=== PATIENT | female | born 1990 | race Caucasian/White ===

== ENCOUNTER 2017-03-08 11:32 | Emergency (ER) | payer OTHER ==
--- NOTE | 2017-03-08 13:30 | UC ---
Back Pain HPI - HPI Summary HPI Summary: Pt presents with right sided lower back pain with numbness into her right leg. She tells me that her pain began about a year ago and she has been managing it with physical therapy and personal care aid. 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 In addition to this right sided lower back pain, she is have numbness and decreased sensations in her right thigh, calf, down to her foot that began 3 days ago. Not getting worse, but not improving. No dysuria, hematuria, saddle anesthesia, pelvic pain, loss of bowel/bladder control. She also mentions that she used to be an avid runner, but hasn't been over the last year due to her back pain. This is very distressing for her as she loves to be an active person. She tells me that one time, years ago, she was running and had a spontaneous fracture of a bone in her right lower leg. She also mentions that she was on minocycline when she was younger for acne - this treatment lasted a few months. As a result, she developed low platelets and was told that her bone marrow had been "compromised". She bruises easily because of this. She also complains of right knee pain, but denies injury. - History of Current Complaint Chief Complaint: UCBackPain Stated Complaint: LOSING FEELING IN LEG Time Seen by Provider: 03/08/17 13:30 Hx Obtained From: Patient Hx Last Menstrual Period: IUD Onset/Duration: Gradual Onset Timing: Intermittent Severity Initially: Moderate Severity Currently: Moderate Pain Intensity: 7 Pain Scale Used: 0-10 Numeric Character: Aching, Throbbing, Spasmodic Aggravating Factor(s): Lifting, Bending, Walking Alleviating Factor(s): Rest Associated Signs And Symptoms: Positive: Numbness - Allergies/Home Medications Allergies/Adverse Reactions: Allergies Allergy/AdvReac Type Severity Reaction Status Date / Time Minocycline Allergy Unknown Verified 03/08/17 11:53 Reaction Details Home Medications: Home Medications Bupropion XL* [Wellbutrin XL *] 300 mg PO DAILY 03/08/17 [History Confirmed ] Cephalexin CAP* [Keflex 500 CAP*] 03/08/17 [History] Hydrocodone-Acetaminophen [Vicodin 5-300 mg] 03/08/17 [History] Lurasidone(*) [Latuda] 03/08/17 [History] Multiple Vitamins W/ Minerals [Multivitamin Women] 03/08/17 [History] Naproxen Sodium-Diphenhydramin [Aleve PM 220-25 mg] 03/08/17 [History] Sertraline HCl [Zoloft] 150 mg PO DAILY 03/08/17 [History Confirmed 03/08/17] PMH/Surg Hx/FS Hx/Imm Hx Psychological History: Anxiety Other History Of: Negative For: Anticoagulant Therapy - Surgical History Surgical History: None - Family History Known Family History: Positive: None - Social History Occupation: Student Lives: Alone Alcohol Use: Rare Substance Use Type: None Smoking Status (MU): Never Smoked Tobacco Review of Systems Constitutional: Negative Skin: Negative Eyes: Negative Respiratory: Negative Cardiovascular: Negative Gastrointestinal: Negative Genitourinary: Negative Musculoskeletal: Other: - Low back pain. Right knee pain Neurological: Numbness - Right leg All Other Systems Reviewed And Are Negative: Yes Physical Exam Triage Information Reviewed: Yes Appearance: Well-Nourished, Pain Distress Vital Signs: Initial Vital Signs Temp 99.0 F 03/08/17 11:47 Pulse 64 03/08/17 11:47 Resp 14 03/08/17 11:47 BP 154/82 03/08/17 11:47 Pulse Ox 100 03/08/17 11:47 Vital Signs Reviewed: Yes Neck: Positive: Supple, Nontender, No Lymphadenopathy, Other: - FROM Respiratory: Positive: Lungs clear, Normal breath sounds, No respiratory distress, No accessory muscle use Cardiovascular: Positive: RRR, No Murmur, Pulses Normal Abdomen Description: Positive: Nontender, No Organomegaly, Soft. Negative: CVA Tenderness (R), CVA Tenderness (L), Distended, Guarding Bowel Sounds: Positive: Present Musculoskeletal: Positive: Strength Intact - B/L LEs including dorsioflexion and plantar flexion, ROM Intact - B/L LEs, No Edema, Other: - Could not reproduce pain in right lower back with palpation. Pain with extension of spine. +SLR on right. Negative EDILMA. Right knee: TTP over patella. FROM. 5/5 strength. Gait with normal base. Neurological: Positive: Alert, Other: - L2-S1 sensations present B/L, but feel decreased along dermatome L4 on right. Psychological: Positive: Age Appropriate Behavior Skin: Negative: rashes, significant lesion(s) Back Pain Course/Dx - Course Course Of Treatment: Right knee: IMPRESSION: NO ACUTE BONY FINDINGS. PRESUMED OLD AVULSION INJURY/FRACTURE SUPERIOR PATELLA. She does not recall any impact or other injury to this knee recently or in the past. Lumbar: IMPRESSION: MILD DEGENERATIVE DISC DISEASE AND OSTEOARTHRITIS. Given her history, current clinical picture, and osteoarthritis at a young age - I am concerned that she may have a herniated disc or underlying autoimmune disease. We had a lengthy discussion about follow up care. She has an appointment with her PCP on 03/15 and will discuss this in more detail at that visit. For her PCP to review at that visit, I have ordered a CBC, CMP, and TSH today. Experienced great relief with Toradol IM today. She will continue to take ibuprofen and narcotic pain medication prn that she has at home for flare ups. - Differential Dx/Diagnosis Provider Diagnoses: Low back pain. Right patella avulsion fracture Discharge - Discharge Plan Condition: Stable Disposition: HOME Patient Education Materials: Lower Back Exercises (ED) Referrals: No Primary Care Phys,NOPCP [Primary Care Provider] - Pako Tracy DO [Medical Doctor] - As Soon As Possible Additional Instructions: If you develop a fever, shortness of breath, chest pain, new or worsening symptoms - please call your PCP or go to the ED. Your blood pressure was high at todays visit. Please see your primary provider within 4 weeks for recheck and re-evaluation. 1) Please keep your follow up appointment with Dr. Saul for 03/15/17. Please discuss with her your chronic back pain and XR findings at today's visit. Based on her recommendations, it is possible you may require an MRI or further blood work. 2) Continue to take ibuprofen as needed for your pain.
[2017-03-08] MEDS ORDERED: Ketorolac INJ* 30 MG/ML 1 ML VIAL IM ONE (13:37)
--- NOTE | 2017-03-08 14:14 | RAD ---
HISTORY: Acute low back pain COMPARISONS: None VIEWS: 5 , Frontal, lateral, coned-down lateral sacral, and bilateral oblique views of the lumbar spine. FINDINGS: ALIGNMENT: The alignment is normal. VERTEBRAL BODIES: The vertebral body heights are normal. The interpedicular distances are normal. JOINTS: There is mild facet hypertrophic change along the lower lumbar spine INTERVERTEBRAL DISCS: There is mild diffuse loss of intervertebral disc height. SOFT TISSUE: Unremarkable. OTHER: The pelvis is unremarkable. The lung bases are clear. An IUD is noted. IMPRESSION: MILD DEGENERATIVE DISC DISEASE AND OSTEOARTHRITIS.
--- NOTE | 2017-03-08 14:16 | RAD ---
INDICATION: Right knee pain COMPARISON: None TECHNIQUE: AP, lateral, tunnel, and sunrise views were obtained. FINDINGS: There is no acute bony change. There are irregularities of the superior patella which may be related to a remote injury. The knee articulates normally. The soft tissues are normal. IMPRESSION: NO ACUTE BONY FINDINGS. PRESUMED OLD AVULSION INJURY/FRACTURE SUPERIOR PATELLA
[2017-03-08 14:30] VITALS: BP 117/73
[2017-03-08 18:31] LABS: ABS Basophils 0.1 10^3/ul (0-0.2); ABS Eosinophils 0.5 10^3/ul (0-0.6); ABS Lymphocytes 2.4 10^3/ul (1.0-4.8); ABS Monocytes 0.8 10^3/ul (0-0.8); ABS Neutrophils 4.9 10^3/ul (1.5-7.7); ABS Nucleated RBC 0 10^3/ul; Hematocrit 40 % (35-47); Hemoglobin 13.9 g/dl (12.0-16.0); Lymphocyte % 27.3 % (25-47); Mean Corpuscular HGB Conc 35 g/dl (31-36); Mean Corpuscular Hemoglobin 32 pg (27-31); Mean Corpuscular Volume 93 fL (80-97); Mean Platelet Volume 9 um3 (7.4-10.4); Nucleated Red Blood Cells % 0; Platelet Count 223 10^3/ul (150-450); Red Blood Count 4.33 10^6/ul (4.0-5.4); Red Cell Distribution Width 13 % (10.5-15); White Blood Count 8.7 10^3/ul (3.5-10.8)
[2017-03-08 18:46] LABS: EGFR Non-African American 94.9 (>60)
== END 2017-03-08 15:35 | disposition home or self-care (01) ==
LOC: UCEAST 11:32
DX: S82.091A Other fracture of right patella, initial encounter for closed fracture (principal); X58.XXXA Exposure to other specified factors, initial encounter; Y92.9 Unspecified place or not applicable; F41.9 Anxiety disorder, unspecified; M54.5 Low back pain
CPT/HCPCS: 36415; 72110; 80053; 81003; 84443; 85025; 87086; 96372; 99211; G0463; J1885

== ENCOUNTER 2017-04-15 16:44 | Emergency (ER) | payer OTHER ==
[2017-04-15 20:10] LABS: Urine Appearance Clear; Urine Blood Negative (Negative); Urine Color Yellow; Urine Ketones Negative (Negative); Urine Protein Negative (Negative); Urine Specific Gravity 1.008 (1.010-1.030); Urine Urobilinogen Negative (Negative)
[2017-04-15 20:44] VITALS: BP 113/68
--- NOTE | 2017-04-15 21:31 | ED ---
Back Pain - HPI Summary HPI Summary: Patient is a 26-year-old female presenting to the ED with a chief complaint of bilateral lower back pain radiating into the legs. She has been dealing with this for several years, with symptoms being intermittent. She endorses intermittent urinary incontinence as well as what she is stating as a "foot drop " with a intermittent drag of the right foot. She denies this currently and denies any back pain currently. She states when she arrived to the ED the pain was severe. She appears very upset, stating she has been dealing with this for a long time and no one is able to figure out the cause. MRI 1 month ago negative. She has been to PT 3 months with no improvement. She states she improved while she was doing tractioned therapy, but current PT will not provide traction therapy. She has tried Flexeril with some relief of associated muscle spasms, but denies any relief of pain. She has tried pain medicine with improvement, but has not been on this recently. She has not tried steroids. While the pain is discretely located over the bilateral sacroiliac joints, the numbness and tingling radiates into the inner and lateral thigh into the right lateral calf, sparing the foot. She is currently on Wellbutrin and Zoloft, both of which are not known to cause symptoms such as these. The urinary incontinence is very infrequent and is often isolated, not associated with back pain. Denies any weight loss or bowel incontinence. Denies any saddle anesthesia. - History of Current Complaint Chief Complaint: EDBackInjuryPain Stated Complaint: BACK PAIN Time Seen by Provider: 04/15/17 18:18 Hx Obtained From: Patient Hx Last Menstrual Period: IUD Onset/Duration: Sudden Onset Onset/Duration: Started Hours Ago Timing: Constant Back Pain Location: Is Discrete @ - Bilateral low back pain bilateral low back pain, Radiates To - Lateral thigh, inner thigh, lateral calf Pain Intensity: 5 Pain Scale Used: 0-10 Numeric Character: Aching Aggravating Symptom(s): Movement, Lifting, Bending, Walking Alleviating Symptom(s): Other - Pain medicine, muscle relaxers Associated Signs And Symptoms: Positive: Bladder Incontinence. Negative: Bowel Incontinence, Weight Loss, Pain with Weight Bearing - Risk Factors AAA Risk Factors: Negative TAD Risk Factors: Negative - Allergies/Home Medications Allergies/Adverse Reactions: Allergies Allergy/AdvReac Type Severity Reaction Status Date / Time MS Minocycline [Minocycline] Allergy Unknown Verified 03/08/17 11:53 Reaction Details PMH/Surg Hx/FS Hx/Imm Hx Previously Healthy: Yes Endocrine/Hematology History: Denies: Hx Anticoagulant Therapy, Hx Blood Disorders, Hx Diabetes, Hx Anemia Cardiovascular History: Denies: Hx Hypertension, Hx Pacemaker/ICD GI History: Denies: Hx Crohn's Disease, Hx Diverticulosis, Hx Gall Bladder Disease, Hx Gastroesophageal Reflux Disease, Hx Gastrointestinal Bleed, Hx Irritable Bowel, Hx Obstructive Bowel, Hx Ulcer History: Denies: Hx Renal Disease Sensory History: Denies: Hx Hearing Aid Psychiatric History: Denies: Hx Panic Disorder - Immunization History Hx Pertussis Vaccination: No Immunizations Up to Date: Unable to Obtain/Confirm Infectious Disease History: No Infectious Disease History: Denies: Traveled Outside the [place] in Last 30 Days - Family History Known Family History: Positive: None - Social History Occupation: Employed Full-time Lives: With Family Alcohol Use: Rare Hx Substance Use: No Substance Use Type: Reports: None Hx Tobacco Use: No Smoking Status (MU): Never Smoked Tobacco Review of Systems Constitutional: Negative Negative: Fever, Chills, Fatigue, Skin Diaphoresis Eyes: Negative Cardiovascular: Negative Genitourinary: Negative Positive: no symptoms reported, see HPI Positive: Arthralgia, Myalgia Skin: Negative Positive: Weakness, Paresthesia, Numbness Psychological: Normal All Other Systems Reviewed And Are Negative: Yes Physical Exam Triage Information Reviewed: Yes Vital Signs On Initial Exam: Initial Vitals Temp Pulse Resp BP Pulse Ox 98.1 F 85 18 121/81 100 04/15/17 16:46 04/15/17 16:46 04/15/17 16:46 04/15/17 16:46 04/15/17 16:46 Vital Signs Reviewed: Yes Appearance: Positive: Well-Appearing, Well-Nourished Skin: Positive: Warm, Skin Color Reflects Adequate Perfusion Head/Face: Positive: Normal Head/Face Inspection Eyes: Positive: EOMI, NHI, Conjunctiva Clear Neck: Positive: Supple, No Lymphadenopathy Respiratory/Lung Sounds: Positive: Clear to Auscultation, Breath Sounds Present Cardiovascular: Positive: RRR, Pulses are Symmetrical in both Upper and Lower Extremities Musculoskeletal: Positive: Strength/ROM Intact Neurological: Positive: Speech Normal Psychiatric: Positive: Normal Diagnostics - Vital Signs Vital Signs Temp Pulse Resp BP Pulse Ox 03/08/18 20:42 97.8 F 75 17 113/68 100 04/15/17 16:46 98.1 F 85 18 121/81 100 - Laboratory Lab Results: Lab Results 04/15/17 Range/Units 20:00 Urine Color Yellow Urine Appearance Clear Urine pH 7.0 (5-9) Ur Specific [place] 1.008 L (1.010-1.030) Urine Protein Negative (Negative) Urine Ketones Negative (Negative) Urine Blood Negative (Negative) Urine Nitrate Negative (Negative) Urine Bilirubin Negative (Negative) Urine Urobilinogen Negative (Negative) Ur Leukocyte Esterase Negative (Negative) Urine Glucose Negative (Negative) Lab Statement: Any lab studies that have been ordered have been reviewed, and results considered in the medical decision making process. Back Pain Course/Dx - Course Course Of Treatment: During the course of treatment, I have discussed at length with patient the probable causes of her back pain and urinary incontinence. Lumbar MRI obtained 1 month ago and negative for any findings. She has not seen a neurosurgeon, a urologist, or an [facility]. Likely urinary incontinence due to other pathology which could include UTI, loss of pelvic floor muscle, or generalized bladder spasms. This does not appear to be an overflow incontinence , as she states she never has any abdominal pain or distention and she will often have a small bout of incontinence shortly following urinating. I have discussed with her the need to follow up with [facility] to assess for any other structural or physiologic pathology which could be contributing to her new incontinence symptoms. I do not believe at this time it is a urology consult which is necessary. She is given a tapered dose of steroids as she has not tried this for relief. She is also given pain medicine and muscle relaxers. She is encouraged to follow up with massage therapy, PT, rn intensive care unit as well as a referral to Dr. Salcedo, neurosurgery, is given. Patient is okay with this plan and discharged. At this time she is ambulating well, has full strength in the bilateral legs, and I observed no neurologic deficits on physical exam. She is okay at this time for discharge. - Diagnoses Differential Diagnosis/HQI/PQRI: Positive: Cauda Equina Syndrome, Compressive Cord Syndrome, Herniated Disc, Strain, Sprain. Negative: Epidural Abscess, Neoplasm, Osteomyelitis, Osteoporosis Provider Diagnoses: Chronic low back pain Discharge - Discharge Plan Condition: Stable Disposition: HOME Prescriptions: Cyclobenzaprine TAB* [Flexeril TAB*] 10 mg PO BID PRN #15 tab MDD 2 PRN Reason: Spasms - Muscle oxyCODONE/Acetamin 10/325(NF) [Percocet 10/325 (NF)] 1 tab PO QID #20 tab MDD 4 predniSONE TAB* [Deltasone TAB*] 10 mg PO DAILY #30 tab Patient Education Materials: Sciatica (ED), Lumbar Radiculopathy (ED), Lower Back Exercises (ED) [place] [facility] [facility] [place],PT [Medical Doctor] - [facility] [Primary Care Provider] - Alejandrina Burk MD [Medical Doctor] - Matt Salcedo MD [Medical Doctor] - Additional Instructions: Prednisone: Take 5 tabs on day 1, 2; Take 4 tabs on day 3, 4; Take 3 tabs on day 5, 6; Take 2 tabs on day 7, 8; Take 1 tab daily until gone Oxycodone/acetaminophen: Up to four times daily for pain Flexeril: Up to twice daily for muscle spasms Ibuprofen 600mg three times daily for inflammation. You may use this medication with all the other medications you are taking. The urine showed NO UTI. Please follow up with Dr. Burk in OBGYN Please follow up with Dr. Briggs in Neurosurgery to go over MRI and discuss treatment options Call PT for a new appt. Make an appt in [place] for a follow up for when school is out. You will want several people involved in your care!! It will help to get an appt for massage therapy and rn intensive care unit as well You never know what will help you.
== END 2017-04-15 20:42 | disposition home or self-care (01) ==
LOC: ED 16:44
DX: M54.5 Low back pain (principal); G89.29 Other chronic pain; Z88.3 Allergy status to other anti-infective agents
CPT/HCPCS: 81003; 99282

== ENCOUNTER 2018-03-01 20:57 | Emergency (ER) | payer OTHER ==
[2018-03-01 21:08] VITALS: BP 117/81
--- NOTE | 2018-03-01 21:10 | UC ---
Abdominal Pain Female HPI - HPI Summary HPI Summary: 27 yo female presents with diarrhea. She tells me that this morning she woke with loose stools, which turned to watery stools by midday. Has had 10+ stools today. 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 Admits that she may have been splashed in the face with cow feces at times. A lot of her classmates have had cryptosporidium and she thinks she may have it. This afternoon began with some nausea and two episodes of vomiting. She is able tolerate fluids po. Generalized abdominal cramping. Denies fever, chills, SOB, chest pain, dysuria. - History of Current Complaint Chief Complaint: UCGI Stated Complaint: DIARRHEA Hx Obtained From: Patient Hx Last Menstrual Period: none Onset/Duration: Gradual Onset Severity Initially: Mild Severity Currently: Mild Pain Intensity: 4 Pain Scale Used: 0-10 Numeric Allergies/Adverse Reactions: Allergies Allergy/AdvReac Type Severity Reaction Status Date / Time minocycline Allergy Severe bone marrow Verified 03/01/18 21:09 Home Medications: Home Medications Fluoxetine HCl [Prozac] 30 mg PO DAILY WITH MEAL 03/01/18 [History Confirmed ] PMH/Surg Hx/FS Hx/Imm Hx Psychological History: Anxiety, Depression Other History Of: Negative For: Anticoagulant Therapy - Surgical History Surgical History: None - Family History Known Family History: Positive: None - Social History Occupation: Student Lives: With Family Alcohol Use: Rare Substance Use Type: None Smoking Status (MU): Never Smoked Tobacco Review of Systems All Other Systems Reviewed And Are Negative: Yes Constitutional: Positive: Negative Skin: Positive: Negative Respiratory: Positive: Negative Cardiovascular: Positive: Negative Gastrointestinal: Positive: Abdominal Pain, Diarrhea, Nausea Neurological: Positive: Negative Psychological: Positive: Negative Physical Exam - Summary Physical Exam Summary: GENERAL: NAD. WDWN. No pain distress. SKIN: No rashes, sores, lesions, or open wounds. NECK: Supple. Nontender. No lymphadenopathy. CHEST: CTAB. No r/r/w. No accessory muscle use. Breathing comfortably and in no distress. CV: RRR. Without m/r/g. Pulses intact. Cap refill <2seconds ABDOMEN: Generalized mild abdominal tenderness. Soft. No distention or guarding. Bowel sounds hyperactive NEURO: Alert. PSYCH: Age appropriate behavior. Triage Information Reviewed: Yes Vital Signs: Initial Vital Signs Temp 99.5 F 03/01/18 21:03 Pulse 103 03/01/18 21:03 Resp 18 03/01/18 21:03 BP 117/81 03/01/18 21:03 Pulse Ox 100 03/01/18 21:03 Vital Signs Reviewed: Yes Abd Pain Female Course/Dx - Course Course Of Treatment: Pt was unable to produce a stool sample in the clinic, therefore will send her home with a stool kit in order to obtain cultures. Advised to avoid immodium and continue drinking fluids and advance diet as tolerated. Advised to go to ED if symptoms worsen or if she is unable to tolerate po. - Differential Dx/Diagnosis Provider Diagnosis: Diarrhea Discharge - Sign-Out/Discharge Documenting (check all that apply): Patient Departure All imaging exams completed and their final reports reviewed: No Studies - Discharge Plan Condition: Stable Disposition: HOME Patient Education Materials: Acute Diarrhea (ED) Referrals: No Primary Care Phys,NOPCP [Primary Care Provider] - Additional Instructions: If you develop a fever, shortness of breath, chest pain, new or worsening symptoms - please call your PCP or go to the ED. May continue taking your zofran every 6 hours as needed for nausea/vomiting. Do not take the immodium as this could worsen your condition. If your symptoms worsen or if you develop a fever - please go to the ER. - Billing Disposition and Condition Condition: STABLE Disposition: Home
== END 2018-03-01 21:55 | disposition home or self-care (01) ==
LOC: UCEAST 20:57
DX: R19.7 Diarrhea, unspecified (principal); F32.9 Major depressive disorder, single episode, unspecified; Z88.1 Allergy status to other antibiotic agents
CPT/HCPCS: 99211; G0463

== ENCOUNTER 2018-03-04 10:43 | Emergency (ER) | payer OTHER ==
[2018-03-04] MEDS ORDERED: NS 0.9% 1000 ML* 1,000 ML IV ONE ×2 (11:17→12:22)
--- NOTE | 2018-03-04 12:38 | UC ---
Nausea/Vomiting/Diarrhea HPI - HPI Summary HPI Summary: 27-year-old female presents with persistent nausea, vomiting, and diarrhea. She was seen at this facility on 03/01/2018 for same symptoms and was recommended supportive care. Stool culture came back on 03/02/2018 positive for cryptosporidium. She was called in a prescription for loperamide and nitazoxanide. States she has used the loperamide twice but has not yet filled the prescription for the nitazoxanide. She has been using ondansetron to manage the nausea and vomiting. States she had one small episode of vomiting 2 days ago but nothing since. On her initial evaluation she was reporting more than 10 episodes of watery diarrhea per day however since using the loperamide she is only had 3-5 episodes per day. Patient states she has been trying to push fluids but feels like she is not able to maintain adequate hydration and therefore presents today for IV fluids. Denies fever, chills, chest pain, palpitations, abdominal pain, or any urinary symptoms. - History of Current Complaint Chief Complaint: UCGU Stated Complaint: DIARRHEA/VOMITING Time Seen by Provider: 03/04/18 11:19 Hx Obtained From: Patient Hx Last Menstrual Period: iud Pain Intensity: 5 - Allergies/Home Medications Allergies/Adverse Reactions: Allergies Allergy/AdvReac Type Severity Reaction Status Date / Time minocycline Allergy Severe bone marrow Verified 03/04/18 10:56 PMH/Surg Hx/FS Hx/Imm Hx Previously Healthy: Yes Psychological History: Depression Other History Of: Negative For: Anticoagulant Therapy - Surgical History Surgical History: Yes Surgery Procedure, Year, and Place: wisdom teeth - Family History Known Family History: Positive: Non-Contributory - Social History Occupation: Student Lives: Dormitory/Roommates Alcohol Use: Rare Substance Use Type: None Smoking Status (MU): Never Smoked Tobacco Review of Systems All Other Systems Reviewed And Are Negative: Yes Constitutional: Negative: Fever, Chills Skin: Negative: Rash ENT: Positive: Negative Respiratory: Negative: Shortness Of Breath, Cough Cardiovascular: Negative: Palpitations, Chest Pain Gastrointestinal: Positive: Vomiting, Diarrhea, Nausea. Negative: Abdominal Pain Genitourinary: Negative: Dysuria, Hematuria, Frequency, Urgency Musculoskeletal: Positive: Negative Neurological: Positive: Negative Is Patient Immunocompromised?: No Physical Exam - Summary Physical Exam Summary: GENERAL APPEARANCE: Well developed, thin, alert and cooperative young adult female who appears non-toxic and to be in no acute distress. CARDIAC: Normal S1 and S2. No S3, S4 or murmurs. Rhythm is regular. There is no peripheral edema, cyanosis or pallor. Extremities are warm and well perfused. Capillary refill is less than 2 seconds. LUNGS: Clear to auscultation without rales, rhonchi, wheezing or diminished breath sounds. ABDOMEN: Positive bowel sounds. Abdomen soft and nondistended. Mild LLQ tenderness without guarding or rebound. No masses or hepatosplenomegally. No CVA tenderness. MUSKULOSKELETAL: ROM intact to all extremities. No joint erythema or tenderness. Normal muscular development. Normal gait. SKIN: Skin normal color, texture and turgor with no lesions or eruptions. Triage Information Reviewed: Yes Vital Signs: Initial Vital Signs Temp 98 F 03/04/18 10:53 Pulse 90 03/04/18 10:53 Resp 20 03/04/18 10:53 BP 101/63 03/04/18 10:53 Pulse Ox 100 03/04/18 10:53 Vital Signs Reviewed: Yes Re-Evaluation - Re-Evaluation First Eval Re-Evaluation Time: 13:10 Change: Improved - Patient has received approximately 1500 ml NS. States she is feeling much better at this time. VSS. Will finish current IV fluids. Anticipate discharge home upon completion. Naus/Vom/Diarrhea Course/Dx - Course Course Of Treatment: 27-year-old female presents with persistent nausea, vomiting, and diarrhea. She was seen at this facility on 03/01/2018 for same symptoms and was recommended supportive care. Stool culture came back on 2018 positive for cryptosporidium. She was called in a prescription for loperamide and nitazoxanide. States she has used the loperamide twice but has not yet filled the prescription for the nitazoxanide. She has been using ondansetron to manage the nausea and vomiting. States she had one small episode of vomiting 2 days ago but nothing since. On her initial evaluation she was reporting more than 10 episodes of watery diarrhea per day however since using the loperamide she is only had 3-5 episodes per day. Patient states she has been trying to push fluids but feels like she is not able to maintain adequate hydration and therefore presents today for IV fluids. Denies fever, chills, chest pain, palpitations, abdominal pain, or any urinary symptoms. She is afebrile with stable vital signs. Exam revealed an alert nontoxic-appearing young adult female with some mild left lower quadrant tenderness and normal bowel sounds and otherwise unremarkable exam. She was given 2 L of normal saline after which she states she felt much better. Recommending that she continue with symptomatic treatment as well as starting the nitazoxanide as previously prescribed. She is to follow-up at [facility] in 5 days if symptoms persist. Anticipatory guidance and warning symptoms were reviewed with the patient. She verbalizes understanding and agrees with plan of care. - Differential Dx/Diagnosis Differential Diagnoses - Female: Enterocolitis, Vomiting, Diarrhea, Colitis, Gastritis Provider Diagnosis: Cryptosporidial gastroenteritis Condition At Discharge: Stable Discharge - Sign-Out/Discharge Documenting (check all that apply): Patient Departure All imaging exams completed and their final reports reviewed: No Studies - Discharge Plan Condition: Stable Disposition: HOME Prescriptions: Ondansetron [Ondansetron Odt] 4 mg PO Q8HR PRN #9 tab.rapdis PRN Reason: Nausea/Vomiting Patient Education Materials: Gastroenteritis (ED) Referrals: No Primary Care Phys,NOPCP [Primary Care Provider] - Additional Instructions: Continue to push fluids in small frequent amounts. Use the ondansetron (Zofran) as directed for nausea and vomiting and the loperamide as directed for diarrhea. I would recommend that start the nitazoxanide that was prescribed to you on since you are having difficulty maintaining your fluid balance. Follow up with [facility] in 5 days if no improvement in symptoms. Seek immediate medical attention in the emergency room if you develop fever greater than 100.5 F, have severe abdominal pain, persistent vomiting, you become weak or dizzy, or have any worsening of symptoms. - Billing Disposition and Condition Condition: STABLE Disposition: Home - Attestation Statements Provider Attestation: Per institutional requirements, I have reviewed the chart, however, I was not consulted specifically or made aware of this patient by the midlevel provider. I did not personally evaluate, interact with , or disposition this patient.
[2018-03-04 13:09] VITALS: BP 113/61
== END 2018-03-04 13:26 | disposition home or self-care (01) ==
LOC: UCEAST 10:43
DX: K52.9 Noninfective gastroenteritis and colitis, unspecified (principal); A07.2 Cryptosporidiosis; Z88.1 Allergy status to other antibiotic agents
CPT/HCPCS: 96360; 96361; 99212; G0463

== ENCOUNTER 2018-03-31 23:27 | Emergency (ER) | payer OTHER ==
--- NOTE | 2018-04-01 01:08 | ED ---
Upper Extremity Pain - HPI Summary HPI Summary: 27-year-old female presents with right thumb injury. She states that she caught it in her door. She states that she tried her own nail trepidation with a pen earlier after she sterilized it and got minimal bleeding occurred. She states that she's been having throbbing pain in her thumb that is making her want to passed out. No numbness or tingling. No previous fracture. 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 - History of Current Complaint Chief Complaint: EDExtremityUpper Stated Complaint: RIGHT THUMB INJURY Time Seen by Provider: 04/01/18 00:44 Hx Last Menstrual Period: iud - Allergies/Home Medications Allergies/Adverse Reactions: Allergies Allergy/AdvReac Type Severity Reaction Status Date / Time minocycline Allergy Severe bone marrow Verified 03/31/18 23:35 PMH/Surg Hx/FS Hx/Imm Hx Endocrine/Hematology History: Denies: Hx Anticoagulant Therapy, Hx Blood Disorders, Hx Diabetes, Hx Thyroid Disease, Hx Anemia Cardiovascular History: Denies: Hx Hypertension, Hx Pacemaker/ICD Respiratory History: Denies: Hx Asthma, Hx Chronic Obstructive Pulmonary Disease (COPD) GI History: Denies: Hx Crohn's Disease, Hx Diverticulosis, Hx Gall Bladder Disease, Hx Gastroesophageal Reflux Disease, Hx Gastrointestinal Bleed, Hx Irritable Bowel, Hx Obstructive Bowel, Hx Ulcer History: Denies: Hx Renal Disease Sensory History: Denies: Hx Hearing Aid Psychiatric History: Denies: Hx Panic Disorder - Surgical History Surgery Procedure, Year, and Place: wisdom teeth Infectious Disease History: No Infectious Disease History: Denies: Hx Hepatitis, Hx Human Immunodeficiency Virus (HIV), Traveled Outside the [place] in Last 30 Days - Family History Known Family History: Positive: Non-Contributory - Social History Alcohol Use: Rare Hx Substance Use: No Substance Use Type: Reports: None Hx Tobacco Use: No Smoking Status (MU): Never Smoked Tobacco Review of Systems Negative: Fever Negative: Chest Pain Negative: Shortness Of Breath Positive: Myalgia - right thumb All Other Systems Reviewed And Are Negative: Yes Physical Exam Triage Information Reviewed: Yes Vital Signs On Initial Exam: Initial Vitals Temp Pulse Resp BP Pulse Ox 97.4 F 94 16 139/94 100 03/31/18 23:30 03/31/18 23:30 03/31/18 23:30 03/31/18 23:30 03/31/18 23:30 Vital Signs Reviewed: Yes Appearance: Positive: Well-Appearing Skin: Positive: Warm, Dry, Other - subungual hematoma of right thumb Head/Face: Positive: Normal Head/Face Inspection Eyes: Positive: Normal, Conjunctiva Clear ENT: Positive: Pharynx normal Respiratory/Lung Sounds: Positive: Clear to Auscultation, Breath Sounds Present Cardiovascular: Positive: Normal, RRR Musculoskeletal: Positive: Strength/ROM Intact - right thumg, Other - tenderness distal phalanx right thumb Neurological: Positive: Normal Psychiatric: Positive: Normal Procedures - Nail Trepanation right thumb Nail Trepanation Location: right thumb Method of Drainage: nail cauterized Sterile Dressing Applied: No Diagnostics - Vital Signs Vital Signs Temp Pulse Resp BP Pulse Ox 03/31/18 23:30 97.4 F 94 16 139/94 100 - Laboratory Lab Statement: Any lab studies that have been ordered have been reviewed, and results considered in the medical decision making process. - Radiology thumb Radiology Interpretation Completed By: ED Physician Summary of Radiographic Findings: no fracture Course/Dx - Course Course Of Treatment: 27-year-old female presents with right thumb injury. She states that she caught it in her door. She states that she tried her own nail trepidation with a pen earlier after she sterilized it and got minimal bleeding occurred. She states that she's been having throbbing pain in her thumb that is making her want to passed out. No numbness or tingling. No previous fracture. 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 On exam subungual hematoma noted of right thumb. Full range of motion thumb. Neurovascular intact. X- ray shows no fracture. Performed a digital block and nail trepidation and got moderate amount of blood out of thumbnail. Told to keep the area clean. Told to ice elevate. Patient understands increase the plan. - Diagnoses Differential Diagnosis/HQI/PQRI: Positive: Fracture (Closed), Strain, Sprain Provider Diagnoses: Injury of right thumb, Subungual hematoma Discharge - Sign-Out/Discharge Documenting (check all that apply): Patient Departure Patient Received Moderate/Deep Sedation with Procedure: No - Discharge Plan Condition: Good Disposition: HOME Patient Education Materials: Subungual Hematoma (ED) Referrals: No Primary Care Phys,NOPCP [Primary Care Provider] - Additional Instructions: Take Tylenol or ibuprofen every 6 hours as needed for pain Apply ice, rest, elevate wash area with soap and water twice a day Return to ED if develop any new or worsening symptoms - Billing Disposition and Condition Condition: GOOD Disposition: Home
[2018-04-01 06:23] VITALS: BP 131/84
== END 2018-04-01 01:36 | disposition home or self-care (01) ==
LOC: ED 23:27
DX: S60.111A Contusion of right thumb with damage to nail, initial encounter (principal); W23.0XXA Caught, crushed, jammed, or pinched between moving objects, initial encounter; Y92.9 Unspecified place or not applicable; Z88.1 Allergy status to other antibiotic agents
CPT/HCPCS: 11740; 99281

== ENCOUNTER 2018-12-16 15:43 | Emergency (ER) | payer OTHER ==
[2018-12-16 16:04] VITALS: BP 128/79
--- NOTE | 2018-12-16 17:04 | UC ---
Head Injury HPI - HPI Summary HPI Summary: This morning on the way to work she slipped on the ice and fell back and hit the back of her right side head on the macadam. She did not lose consciousness. She took 800 mg of ibuprofen and felt pretty good most of the day. Now she comes in complaining of a headache with mild nausea and photophobia. - History Of Current Complaint Chief Complaint: UCHeadInjury Stated Complaint: POSS CONCUSSION Time Seen by Provider: 12/16/18 16:35 Hx Obtained From: Patient Hx Last Menstrual Period: IUD Onset/Duration: Sudden Onset Severity Currently: Moderate Severity Initially: Moderate Pain Intensity: 6 Character: Dull Aggravating Factor(s): Nothing Alleviating Factor(s): Nothing Associated Signs And Symptoms: Positive: Negative, Neck Pain - a little on the right side - Allergies/Home Medications Allergies/Adverse Reactions: Allergies Allergy/AdvReac Type Severity Reaction Status Date / Time minocycline Allergy Severe bone marrow Verified 12/16/18 16:05 PMH/Surg Hx/FS Hx/Imm Hx Previously Healthy: Yes Other Respiratory History: IBS Other History Of: Negative For: Anticoagulant Therapy - Surgical History Surgical History: Yes Surgery Procedure, Year, and Place: wisdom teeth 2011 - Family History Known Family History: Positive: Non-Contributory - Social History Alcohol Use: None Substance Use Type: None Smoking Status (MU): Never Smoked Tobacco Review of Systems All Other Systems Reviewed And Are Negative: Yes Physical Exam - Summary Physical Exam Summary: She is nontoxic in appearance with stable vitals. She is pleasant and cooperative. Triage Information Reviewed: Yes Appearance: Well-Appearing Vital Signs: Initial Vital Signs Temp 98.0 F 12/16/18 15:59 Pulse 113 12/16/18 15:59 Resp 16 12/16/18 15:59 BP 128/79 12/16/18 15:59 Pulse Ox 97 12/16/18 15:59 Vital Signs Reviewed: Yes Eye Exam: Normal - Fundi sharp Eyes: Positive: Conjunctiva Clear ENT Exam: Other - mild tenderness over the right side of the occiput. No swelling appreciated ENT: Positive: TMs normal Neck exam: Other - Mild right paracervical tenderness not in the midline. Neck: Positive: Supple Musculoskeletal Exam: Normal Neurological Exam: Normal Psychological Exam: Normal Head Injury Course/Dx - Course Course Of Treatment: There is a level B recommendation for head trauma patients without loss of consciousness who exhibits severe headache. We spoke about this and she had previously described her headache as moderate and still agreed that it was not a severe headache. I recommended against CT scan at this time but did recommend that she rest today and over the weekend and get reevaluated if she was not improved. - Differential Dx/Diagnosis Provider Diagnosis: Head injury due to trauma Discharge ED - Sign-Out/Discharge Documenting (check all that apply): Patient Departure All imaging exams completed and their final reports reviewed: No Studies - Discharge Plan Condition: Stable Disposition: HOME Patient Education Materials: Head Injury (ED) Forms: *Work Release Referrals: No Primary Care Phys,NOPCP [Primary Care Provider] - [facility] [Outside] Adonis Fonseca [Medical Doctor] - - Billing Disposition and Condition Condition: STABLE Disposition: Home
== END 2018-12-16 17:16 | disposition home or self-care (01) ==
LOC: UCEAST 15:43
DX: S09.90XA Unspecified injury of head, initial encounter (principal); K58.9 Irritable bowel syndrome, unspecified; Z88.1 Allergy status to other antibiotic agents; W00.0XXA Fall on same level due to ice and snow, initial encounter; Y92.9 Unspecified place or not applicable
CPT/HCPCS: 99211; G0463

== ENCOUNTER 2019-04-18 14:47 | Emergency (ER) | payer OTHER ==
[2019-04-18 16:42] LABS: ABS Eosinophils 0.1 10^3/ul (0-0.6); ABS Lymphocytes 1.3 10^3/ul (1.0-4.8); ABS Monocytes 0.6 10^3/ul (0-0.8); ABS Neutrophils 4.9 10^3/ul (1.5-7.7); Eosinophil % 1.9 %; Hematocrit 41 % (35-47); Hemoglobin 13.7 g/dL (12.0-16.0); Lymphocyte % 18.3 %; Mean Corpuscular HGB Conc 34 g/dL (31-36); Mean Corpuscular Hemoglobin 31 pg (27-31); Mean Corpuscular Volume 93 fL (80-97); Mean Platelet Volume 8.6 fL (7.4-10.4); Platelet Count 206 10^3/uL (150-450); Red Blood Count 4.38 10^6 /uL (3.70-4.87); Red Cell Distribution Width 13 % (10-15); White Blood Count 6.9 10^3/uL (3.5-10.8)
[2019-04-18 17:01] LABS: ALT 15 U/L (7-52); AST 19 U/L (13-39); Albumin 4.8 g/dL (3.2-5.2); Albumin/Globulin Ratio 1.9 (1-3); Alkaline Phosphatase 63 U/L (34-104); Anion Gap 5 mmol/L (2-11); BUN/Creatinine Ratio 20.3 (8-20); Blood Urea Nitrogen 15 mg/dL (6-24); CO2 Carbon Dioxide 30 mmol/L (22-32); Calcium 9.8 mg/dL (8.6-10.3); Chloride 104 mmol/L (101-111); EGFR African American 111.5 (>60); EGFR Non-African American 92.1 (>60); Globulin 2.5 g/dL (2-4); Glucose 105 mg/dL (70-100); Magnesium 2.1 mg/dL (1.9-2.7); Sodium 139 mmol/L (135-145); Total Protein 7.3 g/dL (6.4-8.9)
--- NOTE | 2019-04-18 17:44 | ED ---
Syncope/Near Syncope - HPI Summary HPI Summary: 28 year old F presenting to [facility] with a chief complaint of two episodes of near syncope in the last month, one of which happened today. Patient reports diaphoresis, nausea, diarrhea, tingling, and lightheadedness. The patient rates the pain 0/10 in severity. She states that both times that she had the syncopal episodes she was in veterinary surgery and that the first time she had an episode she had hit her head before the surgery. Symptoms aggravated by nothing. Symptoms alleviated by nothing. Patient denies any chest pain, shortness of breath, fever, or chills. No history of DVT or PE. Medication list reviewed. Allergy list reviewed. - History Of Current Complaint Chief Complaint: EDSyncope Time Seen by Provider: 04/18/19 17:24 Hx Obtained From: Patient Onset/Duration: Sudden Onset Timing: Frequency Of Episodes - 2 Activity At Onset: Other - Surgery Aggravating Factor(s): Nothing Alleviating Factor(s): Nothing Associated Signs And Symptoms: Diarrhea, Diaphoresis, Lightheadedness, Other - Nausea; tingling - Allergies/Home Medications Allergies/Adverse Reactions: Allergies Allergy/AdvReac Type Severity Reaction Status Date / Time minocycline Allergy Severe bone marrow Verified 04/18/19 15:06 Home Medications: Home Medications Fluoxetine HCl [Prozac] 50 mg PO DAILY WITH MEAL 03/01/18 [History Confirmed ] Ondansetron [Ondansetron Odt] 4 mg PO Q8HR PRN #9 tab.rapdis 03/04/18 [Rx Confirmed 12/27/18] Diclofenac 1.3% PATCH (NF) [Flector 1.3% PATCH (NF)] 1 patch TOPICAL Q12H PRN [History Confirmed 12/27/18] Flexeril 10 MG TAB* 0.5 tab PO QPM PRN 12/05/18 [History Confirmed 12/27/18] Gabapentin 700 mg PO DAILY 12/05/18 [History Confirmed 12/27/18] buPROPion SR TAB* [Wellbutrin SR TAB*] 1 tab PO DAILY 12/05/18 [History Confirmed 12/27/18] PMH/Surg Hx/FS Hx/Imm Hx Endocrine/Hematology History: Denies: Hx Anticoagulant Therapy, Hx Blood Disorders, Hx Diabetes, Hx Thyroid Disease, Hx Anemia Cardiovascular History: Denies: Hx Hypertension, Hx Pacemaker/ICD Respiratory History: Denies: Hx Asthma, Hx Chronic Obstructive Pulmonary Disease (COPD) GI History: Reports: Hx Irritable Bowel Denies: Hx Crohn's Disease, Hx Diverticulosis, Hx Gall Bladder Disease, Hx Gastroesophageal Reflux Disease, Hx Gastrointestinal Bleed, Hx Obstructive Bowel , Hx Ulcer History: Denies: Hx Renal Disease Musculoskeletal History: Reports: Hx Back Problems - back pain, Other Musculoskeletal History - neck pain Denies: Hx Osteoporosis Sensory History: Denies: Hx Hearing Aid Neurological History: Reports: Other Neuro Impairments/Disorders - concussion December 2018 Psychiatric History: Reports: Hx Anxiety, Hx Depression Denies: Hx Panic Disorder - Surgical History Surgery Procedure, Year, and Place: 2011 Infectious Disease History: No Infectious Disease History: Denies: Hx Hepatitis, Hx Human Immunodeficiency Virus (HIV), Traveled Outside the [place] in Last 30 Days - Family History Known Family History: Positive: Cardiac Disease, Other - Cancer - Social History Alcohol Use: None Hx Substance Use: No Substance Use Type: Reports: None Hx Tobacco Use: No Smoking Status (MU): Never Smoked Tobacco Review of Systems Positive: Skin Diaphoresis. Negative: Fever, Chills Negative: Chest Pain Negative: Shortness Of Breath Positive: Diarrhea, Nausea Neurological/Mental Status: Other - Lightheadedness; near syncope Positive: Paresthesia All Other Systems Reviewed And Are Negative: Yes Physical Exam - Summary Physical Exam Summary: Constitutional: Well-developed, Well-nourished, Alert. (-) Distressed Skin: Warm, Dry HENT: Normocephalic; Atraumatic Eyes: Conjunctiva normal Neck: Musculoskeletal ROM normal neck. (-) JVD, (-) Stridor, (-) Nuchal rigidity Cardio: Rhythm regular, rate normal, Heart sounds normal; Intact distal pulses; Radial pulses are 2+ and symmetric. (-) Murmur Pulmonary/Chest wall: Effort normal. (-) Respiratory distress, (-) Wheezes, (-) Rales Abd: Soft, (-) tenderness, (-) Distension, (-) Guarding, (-) Rebound Musculoskeletal: (-) Edema Lymph: (-) Cervical adenopathy Neuro: Alert, Oriented x3 Psych: Mood and affect Normal Triage Information Reviewed: Yes Vital Signs On Initial Exam: Initial Vitals Temp Pulse Resp BP Pulse Ox 98.3 F 82 16 127/100 99 04/18/19 15:01 04/18/19 15:01 04/18/19 15:01 04/18/19 15:01 04/18/19 15:01 Vital Signs Reviewed: Yes Procedures - Sedation Patient Received Moderate/Deep Sedation with Procedure: No Diagnostics - Vital Signs Vital Signs Temp Pulse Resp BP Pulse Ox 04/18/19 16:42 98.3 F 91 16 139/77 99 04/18/19 15:01 98.3 F 82 16 127/100 99 - Laboratory Lab Results: Lab Results 04/18/19 04/18/19 04/18/19 Range/Units 16:26 16:26 16:26 WBC 6.9 (3.5-10.8) 10^3/uL RBC 4.38 (3.70-4.87) 10^6 /uL Hgb 13.7 (12.0-16.0) g/dL Hct 41 (35-47) % MCV 93 (80-97) fL MCH 31 (27-31) pg MCHC 34 (31-36) g/dL RDW 13 (10-15) % Plt Count 206 (150-450) 10^3/uL MPV 8.6 (7.4-10.4) fL Neut % (Auto) 70.9 % Lymph % (Auto) 18.3 % [place] % (Auto) 8.3 % Eos % (Auto) 1.9 % Baso % (Auto) 0.6 % Absolute Neuts (auto) 4.9 (1.5-7.7) 10^3/ul Absolute Lymphs (auto) 1.3 (1.0-4.8) 10^3/ul Absolute Monos (auto) 0.6 (0-0.8) 10^3/ul Absolute Eos (auto) 0.1 (0-0.6) 10^3/ul Absolute Basos (auto) 0.0 (0-0.2) 10^3/ul Absolute Nucleated RBC 0.0 10^3/ul Nucleated RBC % 0.0 Sodium 139 (135-145) mmol/L Potassium 4.0 (3.5-5.0) mmol/L Chloride 104 (101-111) mmol/L Carbon Dioxide 30 (22-32) mmol/L Anion Gap 5 (2-11) mmol/L BUN 15 (6-24) mg/dL Creatinine 0.74 (0.51-0.95) mg/dL Est GFR ( Amer) 111.5 (>60) Est GFR (Non-Af Amer) 92.1 (>60) BUN/Creatinine Ratio 20.3 H (8-20) Glucose 105 H (70-100) mg/dL Lactic Acid 0.5 (0.5-2.0) mmol/L Calcium 9.8 (8.6-10.3) mg/dL Magnesium 2.1 (1.9-2.7) mg/dL Total Bilirubin 0.30 (0.2-1.0) mg/dL AST 19 (13-39) U/L ALT 15 (7-52) U/L Alkaline Phosphatase 63 (34-104) U/L Ammonia (16-53) mcmol/L Troponin I 0.00 (<0.03) ng/mL B-Natriuretic Peptide (<=100) pg/mL Total Protein 7.3 (6.4-8.9) g/dL Albumin 4.8 (3.2-5.2) g/dL Globulin 2.5 (2-4) g/dL Albumin/Globulin Ratio 1.9 (1-3) TSH Pending Serum Alcohol Pending 04/18/19 Range/Units 16:26 WBC (3.5-10.8) 10^3/uL RBC (3.70-4.87) 10^6 /uL Hgb (12.0-16.0) g/dL Hct (35-47) % MCV (80-97) fL MCH (27-31) pg MCHC (31-36) g/dL RDW (10-15) % Plt Count (150-450) 10^3/uL MPV (7.4-10.4) fL Neut % (Auto) % Lymph % (Auto) % [place] % (Auto) % Eos % (Auto) % Baso % (Auto) % Absolute Neuts (auto) (1.5-7.7) 10^3/ul Absolute Lymphs (auto) (1.0-4.8) 10^3/ul Absolute Monos (auto) (0-0.8) 10^3/ul Absolute Eos (auto) (0-0.6) 10^3/ul Absolute Basos (auto) (0-0.2) 10^3/ul Absolute Nucleated RBC 10^3/ul Nucleated RBC % Sodium (135-145) mmol/L Potassium (3.5-5.0) mmol/L Chloride (101-111) mmol/L Carbon Dioxide (22-32) mmol/L Anion Gap (2-11) mmol/L BUN (6-24) mg/dL Creatinine (0.51-0.95) mg/dL Est GFR ( Amer) (>60) Est GFR (Non-Af Amer) (>60) BUN/Creatinine Ratio (8-20) Glucose (70-100) mg/dL Lactic Acid (0.5-2.0) mmol/L Calcium (8.6-10.3) mg/dL Magnesium (1.9-2.7) mg/dL Total Bilirubin (0.2-1.0) mg/dL AST (13-39) U/L ALT (7-52) U/L Alkaline Phosphatase (34-104) U/L Ammonia 39 (16-53) mcmol/L Troponin I (<0.03) ng/mL B-Natriuretic Peptide 24 (<=100) pg/mL Total Protein (6.4-8.9) g/dL Albumin (3.2-5.2) g/dL Globulin (2-4) g/dL Albumin/Globulin Ratio (1-3) TSH Serum Alcohol Result Diagrams: 04/18/19 16:26 04/18/19 16:26 Lab Statement: Any lab studies that have been ordered have been reviewed, and results considered in the medical decision making process. - Radiology Chest x-ray Radiology Interpretation Completed By: Radiologist Summary of Radiographic Findings: No radiographic evidence of acute cardiopulmonary disease. ED physician has reviewed this report. - EKG 16:39 Cardiac Rate: NL - 78 BPM EKG Rhythm: Sinus Rhythm Summary of EKG Findings: An EKG at 16:39 reveals normal sinus rhythm rate of 78 BPM. ED physician has reviewed and interpreted this EKG. Course/Dx Course Of Treatment: 28 y/o F p/w near syncopal episode. - patient w history of similar in the past, also reports history of low blood sugars. Episodes related to standing for long periods of time during surgery. Suspect vasovagal. Orthostatics unremarkable. also consider: Seizure: no witnessed seizure activity, incontinence or h/o seizures to suggest seizure today. Hypoxia and hypoglycemia less likely in this patient with normal sats and BG. Cardiac issue: electrical (dysarrhythmias, brugada, WPW, long QT). Less likely given no evidence of drop attack, no palpitations, no EKG findings to predispose to arrhythmias. No CP. Vessels: PE, dissection, AAA. Clinical picture inconsistent, no abd pain, no pulsatile mass, symmetric pulses, no risk factors of PE. Volume issue: dehydration from vomiting/diarrhea/decreased PO, sepsis, GI bleed, ruptured ectopic or bleeding AAA. No signs of recent illness to suggest infection, no e/o anemia, negative. Neuro: No PULIDO, no personal or family h/o cerebral aneurysm, nml neuro exam, so this is unlikely ICH or sentinel bleed - Diagnoses Provider Diagnoses: Syncope Discharge ED - Sign-Out/Discharge Documenting (check all that apply): Patient Departure - Discharge Plan Condition: Stable Disposition: HOME Patient Education Materials: Syncope (ED) Referrals: Katheryn Saul MD [Primary Care Provider] - Additional Instructions: You were seen in the emergency department for and be. Your labs did now show a cause for this, your EKG was normal. Please follow up with your primary care doctor in next 2-3 days and return to emergency department for continued syncope, chest pain, shortness breath, worsening or concerning symptoms. It was a pleasure taking care of you today. - Billing Disposition and Condition Condition: STABLE Disposition: Home - Attestation Statements Document Initiated by Duarteibmonica: Yes Documenting Duarteibe: Christy Amin Provider For Whom Chaz is Documenting (Include Credential): Umm Carrington MD Scribe Attestation: I, Christy Amin, scribed for Umm Carrington MD on 04/18/19 at 1924. Scribe Documentation Reviewed: Yes Provider Attestation: The documentation as recorded by the Christy arriola accurately reflects the service I personally performed and the decisions made by me, Umm Carrington MD Status of Scribe Document: Viewed
[2019-04-18] MEDS ORDERED: NS 0.9% 1000 ML** 1,000 ML IV ONE (18:06)
[2019-04-18 18:20] LABS: Urine Appearance Clear; Urine Bilirubin Negative (Negative); Urine Blood Negative (Negative); Urine Color Straw; Urine Glucose Negative (Negative); Urine Ketones Negative (Negative); Urine Nitrite Negative (Negative); Urine Protein Negative (Negative); Urine Urobilinogen Negative (Negative)
[2019-04-18 18:29] LABS: Alcohol < 10 mg/dL (<10)
[2019-04-18 18:37] LABS: TSH (Thyroid Stimulating Horm) 3.81 mcIU/mL (0.34-5.60)
[2019-04-18 19:05] VITALS: BP 129/95
[2019-04-18 19:23] LABS: HCG Pregnancy < 0.60 mIU/mL
== END 2019-04-18 19:40 | disposition home or self-care (01) ==
LOC: ED 14:47
DX: R55 Syncope and collapse (principal); R19.7 Diarrhea, unspecified; R20.2 Paresthesia of skin; R42 Dizziness and giddiness; R11.0 Nausea; Z88.1 Allergy status to other antibiotic agents; Z79.899 Other long term (current) drug therapy
CPT/HCPCS: 36415; 71046; 80053; 80320; 81003; 82140; 83605; 83735; 83880; 84443; 84484; 84702; 85025; 85379; 93005; 99283; G0480